=== PATIENT | male | born 1990 | race Caucasian/White ===

== ENCOUNTER 2025-04-13 07:09 | Emergency (ER) | payer BC, OTHER ==
[2025-04-13] MEDS ORDERED: Amoxicillin/Potassium Clav 875 MG TAB ONE (07:33)
== END 2025-04-13 07:34 | disposition home or self-care (01) ==
LOC: BURERS 07:09
DX: H65.91 Unspecified nonsuppurative otitis media, right ear (principal); H73.91 Unspecified disorder of tympanic membrane, right ear; F17.210 Nicotine dependence, cigarettes, uncomplicated
CPT/HCPCS: 99282